=== PATIENT | male | born 1995 | race Caucasian/White ===

== ENCOUNTER 2021-07-26 07:48 | Emergency (ER) | payer OTHER ==
[2021-07-26] MEDS ORDERED: LANTUS100 UNIT SC (08:23)
[2021-07-26 09:19] VITALS: BP 140/99
== END 2021-07-26 09:30 | disposition home or self-care (01) | DRG 566 ==
LOC: ED 07:48
PROC: 2W3QX1Z Immobilization of Right Lower Leg using Splint (ICD-10-PCS; principal; 2021-07-26)
DX: M21.961 Unspecified acquired deformity of right lower leg (principal); E11.9 Type 2 diabetes mellitus without complications; X50.0XXA Overexertion from strenuous movement or load, initial encounter; Y93.A9 Activity, other involving cardiorespiratory exercise; Y92.89 Other specified places as the place of occurrence of the external cause; Y99.0 Civilian activity done for income or pay; Z79.4 Long term (current) use of insulin

== ENCOUNTER 2022-01-13 08:55 | Emergency (ER) | payer OTHER ==
[~2022-01-13] VITALS: Ht 172.7 cm; Wt 105.0 kg
[2022-01-13] VITALS (9 sets, daily range): BP systolic 116–164; BP diastolic 72–95
[~2022-01-13 08:55] MED LIST: LANTUS100 UNIT SC
[2022-01-13] MEDS ORDERED: TORADOL PO (10:35)
== END 2022-01-13 10:49 | disposition home or self-care (01) | DRG 563 ==
LOC: ED 08:55
DX: S86.911A Strain of unspecified muscle(s) and tendon(s) at lower leg level, right leg, initial encounter (principal); X50.0XXA Overexertion from strenuous movement or load, initial encounter; Y93.89 Activity, other specified; Y99.0 Civilian activity done for income or pay